=== PATIENT | male | born 1985 | race Caucasian/White ===

== ENCOUNTER 2022-06-09 11:03 | Emergency (ER) | payer SELFPAY ==
[~2022-06-09] VITALS: Ht 182.9 cm; Wt 90.0 kg
[2022-06-09] MEDS ORDERED: KETOROLAC TROMETH 30 MG/ML 1ML VIAL IV ONE (13:30)
[2022-06-09] MEDS ORDERED: KETAMINE 50mg/ML 10ml Vial (500mg/10ml) IV ONE (13:30)
[2022-06-09] MEDS ORDERED: IBUP800T26 PO (14:12)
[2022-06-09] MEDS ORDERED: CYCL-837 PO (14:13)
[2022-06-09 15:58] VITALS: BP 141/88
== END 2022-06-09 16:12 | disposition home or self-care (01) ==
LOC: ER 11:03
DX: S43.005A Unspecified dislocation of left shoulder joint, initial encounter (principal); V00.831A Fall from motorized mobility scooter, initial encounter; Y93.89 Activity, other specified; Y92.89 Other specified places as the place of occurrence of the external cause; Y99.8 Other external cause status
CPT/HCPCS: 23650; 73020; 73030; 99152